=== PATIENT | female | born 1950 | race Two or more races ===

== ENCOUNTER 2019-01-10 13:30 | Outpatient (CLI) | payer OTHER | END 2019-01-10 13:47 | disposition home or self-care (01) | LOC: TOM 13:30 | DX: N20.0 Calculus of kidney (principal) ==

== ENCOUNTER 2019-02-13 06:55 | Inpatient (IN) | payer OTHER ==
[~2019-02-13] VITALS: Ht 154.9 cm; Wt 78.5 kg
[~2019-02-13 06:55] MED LIST: COZAAR50 MG PO; GLIMEPIRIDE1 MG
== END 2019-02-15 11:17 | disposition home or self-care (01) | DRG 670 ==
LOC: CIR.AMB 06:55 → O/R 16:23 → CIR.AMB 17:02 → SURH 18:18
PROVIDERS: ADMIT Urology
PROC: BT1DZZZ Fluoroscopy of Right Kidney, Ureter and Bladder (ICD-10-PCS; 2019-02-13)
PROC: 0TC38ZZ Extirpation of Matter from Right Kidney Pelvis, Via Natural or Artificial Opening Endoscopic (ICD-10-PCS; principal; 2019-02-13 07:00)
PROC: 0TF68ZZ Fragmentation in Right Ureter, Via Natural or Artificial Opening Endoscopic (ICD-10-PCS; 2019-02-13 07:00)
DX: N20.0 Calculus of kidney (principal); N20.1 Calculus of ureter

== ENCOUNTER 2019-02-22 07:35 | Outpatient (CLI) | payer OTHER | END 2019-02-22 07:38 | disposition home or self-care (01) | LOC: RAD 07:35 | DX: N20.0 Calculus of kidney (principal) ==

== ENCOUNTER → 2019-04-30 | Outpatient (CLI) | payer OTHER | END | disposition home or self-care (01) | LOC: RAD 07:37 | DX: N20.0 Calculus of kidney (principal) ==

== ENCOUNTER 2021-06-25 08:44 | Outpatient (CLI) | payer OTHER | END 2021-06-25 08:52 | disposition home or self-care (01) | LOC: RAD 08:44 | PROVIDERS: ATTEND Urology | DX: N20.0 Calculus of kidney (principal) ==